=== PATIENT | female | born 1955 | race Caucasian/White ===

== ENCOUNTER → 2022-10-09 07:57 | Outpatient (BNVA) | payer MEDICARE, OTHER, SELFPAY | PROVIDERS: PCP Internal Medicine; Visit Provider Internal Medicine Rheumatology | DX: M19.041 Primary osteoarthritis, right hand (principal); M19.042 Primary osteoarthritis, left hand; M25.551 Pain in right hip; M25.552 Pain in left hip; R63.4 Abnormal weight loss | CPT/HCPCS: 36415; 73521; 80053; 82085; 82550; 84443; 85652; 86038; 86039; 86140; 86200; 86431; 99202 ==

== ENCOUNTER 2022-10-09 09:31 | Outpatient (REF) | payer MEDICARE, OTHER, SELFPAY ==
--- NOTE | ~2022-10-09 | XR_ITS ---
EXAMINATION: XR BILATERAL HIPS WITH AP PELVIS CLINICAL INFORMATION: Pain in right hip COMPARISON: None TECHNIQUE: AP view of the pelvis with AP and frog-leg lateral views of both hips FINDINGS: No fracture or dislocation. Hip joint spaces are maintained. Minimal acetabular spurring. Sacroiliac joints are patent. XR/XR hip BI w PEL1V IMPRESSION: No acute osseous abnormality.
[2022-10-09 11:05] LABS: Alanine Aminotransferase 21 U/L (0-31); Albumin Level 4.3 g/dL (3.5-5.0); Alkaline Phosphatase 58 U/L (39-117); Anion Gap 9 (12-20); Aspartate Amino Transferase 22 U/L (5-31); Bilirubin Total 0.5 mg/dL (0.0-1.0); Blood Urea Nitrogen 15 mg/dL (9-16); C Reactive Protein < 0.10 mg/dL (< or = 0.50); Calcium 9.6 mg/dL (8.4-10.2); Carbon Dioxide 31 mmol/L (22-29); Chloride 104 mmol/L (96-108); Estimated Glomerular Filt Rate > 60; Glucose Random 105 mg/dL (60-115); Potassium 4.2 mmol/L (3.3-5.1); Rheumatoid Factor < 13.0 IU/mL (<15.0); Sodium 140 mmol/L (135-145); Total Protein 6.9 g/dL (6.5-8.0)
[2022-10-09 11:15] LABS: Erythrocyte Sedimentation Rate 9 MM/HR (0-20); Thyroid Stimulating Hormone 0.79 uIU/mL (0.32-4.0)
[2022-10-11 11:03] LABS: Anti Nuclear Antibody Screen NEGATIVE (NEGATIVE)
[2022-10-11 15:58] LABS: Cyclic Citrullinated Peptide <16 UNITS
[2022-10-13 10:18] LABS: Aldolase 4.9 U/L (<=8.1)
== END 2022-10-09 09:32 | disposition home or self-care (01) ==
LOC: HO.10HDL 09:31
PROVIDERS: PCP Internal Medicine; Visit Provider Internal Medicine Rheumatology
DX: Z13.89 Encounter for screening for other disorder (principal)
CPT/HCPCS: 36415; 73521; 80053; 82085; 82550; 84443; 85652; 86038; 86039; 86140; 86200; 86431

== ENCOUNTER → 2022-12-04 08:02 | Outpatient (BNVA) | payer MEDICARE, OTHER, SELFPAY | PROVIDERS: PCP Internal Medicine; Visit Provider Internal Medicine Rheumatology | DX: M35.3 Polymyalgia rheumatica (principal); M19.041 Primary osteoarthritis, right hand; M19.042 Primary osteoarthritis, left hand | CPT/HCPCS: 99212 ==

== ENCOUNTER 2023-03-24 10:40 | Outpatient (REF) | payer MEDICARE, OTHER, SELFPAY ==
[2023-03-24 12:00] LABS: C Reactive Protein < 0.10 mg/dL (< or = 0.50)
[2023-03-24 12:16] LABS: Erythrocyte Sedimentation Rate 3 MM/HR (0-20)
== END 2023-03-24 10:41 | disposition home or self-care (01) ==
LOC: HO.LAB 10:40
PROVIDERS: PCP Internal Medicine; Visit Provider Internal Medicine Rheumatology
DX: M35.3 Polymyalgia rheumatica (principal)
CPT/HCPCS: 36415; 85652; 86140

== ENCOUNTER → 2023-03-25 08:41 | Outpatient (BNVA) | payer MEDICARE, OTHER, SELFPAY | PROVIDERS: PCP Internal Medicine; Visit Provider Internal Medicine Rheumatology | DX: M35.3 Polymyalgia rheumatica (principal); M19.041 Primary osteoarthritis, right hand; M19.042 Primary osteoarthritis, left hand | CPT/HCPCS: 99212 ==

== ENCOUNTER 2023-07-08 13:52 | Outpatient (REF) | payer MEDICARE, OTHER, SELFPAY ==
[2023-07-08 15:28] LABS: C Reactive Protein < 0.04 mg/dL (< or = 0.50)
[2023-07-08 15:31] LABS: Erythrocyte Sedimentation Rate 5 MM/HR (0-20)
== END 2023-07-08 13:53 | disposition home or self-care (01) ==
LOC: HO.LAB 13:52
PROVIDERS: Visit Provider Internal Medicine Rheumatology
DX: M35.3 Polymyalgia rheumatica (principal)
CPT/HCPCS: 36415; 85652; 86140

== ENCOUNTER 2023-07-16 11:15 | Outpatient (AMB) | payer MEDICARE, OTHER, SELFPAY ==
--- NOTE | 2023-07-16 11:21 | A.OFFVIS_ITS ---
Intake Vital Signs 07/16/23 11:33 Height 5 ft 4 in Weight 111 lb 15.917 oz BMI 19.2 BP 108/80 Blood Pressure Location Lt brachial Position Sitting Pulse 86 Pulse Source Pulse Oximeter Temp 97.5 F Temp Source Skin Pulse Oximetry (%) 97 Oxygen Delivery Method Room Air Intake Visit Reasons: pmr Intake Note: patient presents to office today to follow up on PMR. Pipe Cutter Required: No Accompanied by: Self / Same As Patient Allergies Sulfa (Sulfonamide Antibiotics) Allergy (Intermediate, Verified 07/16/23 11:32) mouth swelling HPI HPI Comments History of Present Illness Details The patient returns for evaluation of her PMR. She is currently at 1 mg daily prednisone. In mid June she decided to stop the prednisone. She did fine with no symptoms for about 10 days and then started to develop some overall stiffness in her shoulders, hips and knees. She recognized this as some return of her PMR symptoms so she restarted the prednisone at 1 mg daily. There has been no headache, jaw claudication or visual disturbance. She rarely uses some [id number] ibuprofen for joint pains. There has been no joint swelling. [facility] Medical History (Updated 12/03/22 @ 17:29 by Jean-Claude Adams MD) Muscle pain Chronic right shoulder pain SOB (shortness of breath) Hypertension Vasomotor symptoms due to menopause Migraines Surgical History History of rectal surgery Social History Household Members: Spouse Housing: House Alcohol intake: current Alcohol intake frequency: 0-2 drinks per day Alcohol type: wine Patient Tobacco Use Status: Never used Tobacco e-Cigarette/Vaping Use: Never Used service: No Current occupational status: retired Current occupation: Former manager environmental Review of Systems Const Details: Negative for appetite change, weight change, fever, chills, malaise and fatigue Eyes Details: Negative for vision change, dry eyes,headaches and dizziness Neuro Details: Negative for epilepsy, palsy, stroke, changes in speech, tingling and weakness Endo Details: Negative for polyuria and polydypsia Merlin/Lymph Details: Negative for excessive bruising or bleeding. Physical Exam Vital Signs: Last Vital Signs Temp 97.5 F 07/16/23 11:33 Pulse 86 07/16/23 11:33 BP 108/80 07/16/23 11:33 Pulse Ox 97 07/16/23 11:33 Oxygen Delivery Method Room Air 07/16/23 11:33 BMI result Body Mass Index 19.2 APPEARANCE: Patient in no acute distress EYES no redness, pupils equal and reactive to light, eyelids normal.? No temporal artery tenderness, redness or swelling. EXTREMITIES:? No edema, no calf tenderness, normal peripheral pulses. Neuro: Oriented and alert. No focal weakness. There is a fine intention tremor of the right hand. No cogwheeling. JOINT EXAM: ?? Cervical Spine:.? Full range of motion without pain; no tenderness. Thoracic Spine:.? No scoliosis.? No tenderness on palpation. Lumbar Spine:.? Alignment normal.? Full range of motion without pain, no tenderness. Chest Wall:.? No tenderness, swelling, increased warmth or erythema. Hands:? Normal pain-free range of motion.? There is nontender bony enlargement at the 2nd through 5th PIP joints bilaterally, a bit less prominent in the right hand.? None of these are tender.? She has no flexor tendon triggering or tenderness.? There is no thenar atrophy or sensory loss.? Wrists:.? Normal pain-free range of motion without tenderness, swelling, increased warmth or erythema. Elbows:. Normal pain-free range of motion without tenderness, swelling, increased warmth or erythema. Shoulders:.?? Full range of motion with no discomfort with extremes of normal range of motion. No tenderness, weakness, swelling, increased warmth or erythema. Hips:? Right: Slight thigh discomfort with extremes of external rotation and abduction.? No groin pain with motion.? Left:? Full range of motion with slight buttock and lateral hip discomfort at the extremes of normal abduction and external rotation.? No groin pain with motion. Hip bursa:.? No tenderness. Knees:.?? Normal pain-free range of motion without tenderness, swelling, increased warmth or erythema.? There is no effusion or crepitation Ankles:? Normal pain-free range of motion without tenderness, swelling, increased warmth or erythema. Results Reviewed Results Reviewed: Laboratory Tests 07/08/23 14:13 ESR 5 C-Reactive Protein < 0.04 Assessment & Plan Assessment & Plan (1) Polymyalgia rheumatica: Comment: onset 12/2021 ESR/CRP normal in 05/2022 Code(s): M35.3 - Polymyalgia rheumatica Plan PMR with no symptoms to suggest active inflammatory disease. However when she did stop the prednisone after 10 days some stiffness came back so she probably needs some dose of prednisone. I told her to stay on the 1 mg daily for this month and then next month, August, try to go to 1 mg every other day. If that is without any flare of symptoms I suggested she should stop the prednisone in September and see how that goes. If symptoms do return she will go back to the 1 mg daily dose. We will check lab work before her next visit in about 3 months. Orders: Orders Erythrocyte Sedimentation Rate Today M35.3 - Polymyalgia rheumatica C Reactive Protein Today M35.3 - Polymyalgia rheumatica Coding Level of Care Code Est Pt Level 3 (66417) Diagnoses Polymyalgia rheumatica M35.3
[2023-07-16 11:33] VITALS: BP 108/80; PULSE 86; TEMP 36.4; O2SAT 97; BMI 19.2
== END 2023-07-16 12:02 | disposition home or self-care (01) ==
PROVIDERS: PCP Internal Medicine; Visit Provider Internal Medicine Rheumatology
DX: M35.3 Polymyalgia rheumatica (principal)
CPT/HCPCS: 99213

== ENCOUNTER → 2023-07-16 11:15 | Outpatient (BNVA) | payer MEDICARE, OTHER, SELFPAY | PROVIDERS: PCP Internal Medicine; Visit Provider Internal Medicine Rheumatology | DX: M35.3 Polymyalgia rheumatica (principal) | CPT/HCPCS: 99212 ==

== ENCOUNTER 2023-10-13 17:11 | Outpatient (REF) | payer MEDICARE, OTHER, SELFPAY ==
[2023-10-13 18:08] LABS: C Reactive Protein < 0.04 mg/dL (< or = 0.50)
[2023-10-13 18:22] LABS: Erythrocyte Sedimentation Rate 5 MM/HR (0-20)
== END 2023-10-13 17:12 | disposition home or self-care (01) ==
LOC: HO.LAB 17:11
PROVIDERS: Visit Provider Internal Medicine Rheumatology
DX: M35.3 Polymyalgia rheumatica (principal)
CPT/HCPCS: 36415; 85652; 86140

== ENCOUNTER 2023-10-16 09:16 | Outpatient (AMB) | payer MEDICARE, OTHER, SELFPAY ==
--- NOTE | 2023-10-16 09:19 | A.OFFVIS_ITS ---
Intake Vital Signs 10/16/23 09:20 Height 5 ft 4 in Weight 111 lb 1.808 oz BMI 19.1 BP 100/70 Blood Pressure Location Rt brachial Position Sitting Pulse 60 Pulse Source Palpation Temp 97 F Temp Source Skin Intake Visit Reasons: pmr with dr Brian Sotelo Note: Pt last seen by Dr Adams on 07/16/23 presents today for follow up and test results. Presnisone was discontinued, now having stiffness on legs and hips, ? restarting prednisone? 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 After patient got COVID booster vaccine in September of 2021 she started to have PMR like symptoms in early 2021. She was diagnosed with PMR by Dr. Adams in 2021. She did not have high inflammatory markers. She was started on prednisone 5 mg daily. This was the highest prednisone dose she received. With good results. After last visit in July with Dr. Adams, patient tapered her prednisone back to 1 mg daily then 1 mg every other day, she completely discontinued prednisone by the end of August. She states that she feels well overall currently except for minimal morning stiffness of her hips and thighs. Denies shoulder pain or stiffness. Denies any swollen joints. She states that 80% of her morning stiffness resolves as soon as she gets up from her bed, 20% of the stiffness remains throughout the day but symptoms are quite tolerable. She denies any fevers, headaches or blurry vision. Most recent history by Dr. Adams 07/2023: The patient returns for evaluation of her PMR. She is currently at 1 mg daily prednisone. In mid June she decided to stop the prednisone. She did fine with no symptoms for about 10 days and then started to develop some overall stiffness in her shoulders, hips and knees. She recognized this as some return of her PMR symptoms so she restarted the prednisone at 1 mg daily. There has been no headache, jaw claudication or visual disturbance. She rarely uses some [id number] ibuprofen for joint pains. There has been no joint swelling. [facility] Medical History Muscle pain Chronic right shoulder pain SOB (shortness of breath) Hypertension Vasomotor symptoms due to menopause Migraines Surgical History History of rectal surgery Social History Household Members: Spouse Housing: House Alcohol intake: current Alcohol intake frequency: 0-2 drinks per day Alcohol type: wine Patient Tobacco Use Status: Never used Tobacco e-Cigarette/Vaping Use: Never Used service: No Current occupational status: retired Current occupation: Former senior environmental technician Review of Systems [facility] Reports arthralgias and Reports stiffness Physical Exam Vital Signs: Last Vital Signs Temp 97 F 10/16/23 09:20 Pulse 60 10/16/23 09:20 BP 100/70 10/16/23 09:20 BMI result Body Mass Index 19.1 Const General: cooperative, healthy appearing and comfortable Nutritional Appearance: average body habitus Orientation/consciousness: patient oriented x3 Limitations: no limitations HEENT Head: Yes normocephalic and Yes atraumatic Mouth: moist mucous membranes Resp Effort & Inspection: normal respiratory effort and able to speak in complete sentences Auscultation: clear to auscultation bilaterally Cardio Rate: regular rate Rhythm: regular rhythm GI Inspection: No distended Palpation (GI): Soft to palpation and nontender Skin General skin exam: no rashes or lesions noted Neuro General: patient oriented x3 Extrem Other: Significant osteoarthritic changes of hands with prominent Heberden's nodes Normal range of motion of hands, wrists, elbows and shoulders without pain Normal range of motion of hips, knees without pain No Active synovitis noted Assessment & Plan Assessment & Plan (1) Polymyalgia rheumatica: Comment: onset 12/2021 ESR/CRP normal in 05/2022 Code(s): M35.3 - Polymyalgia rheumatica Plan: 68-year-old female returns for evaluation of PMR.? After patient got COVID booster vaccine in September of 2021 she started to have PMR like symptoms in early 2021.? She was diagnosed with PMR by Dr. Adams in 2021.? She did not have high inflammatory markers.? She was started on prednisone 5 mg daily.? This was the highest prednisone dose she received.? With good results. She has been off of prednisone for about 2 months now, doing quite well except for fairly minimal stiffness of her hips and thighs. Discussed with patient, will watch her off steroids for now. Re-evaluate in 6 months Plan I spent 20 minutes reviewing patient's chart, evaluating patient, counseling patient and documenting in the chart Coding Level of Care Code Est Pt Level 3 (80127) Diagnoses Polymyalgia rheumatica M35.3
[2023-10-16 09:20] VITALS: BP 100/70; PULSE 60; TEMP 36.1; BMI 19.1
== END 2023-10-16 10:05 | disposition home or self-care (01) ==
PROVIDERS: PCP Internal Medicine; Visit Provider Student in an Organized Health Care Education/Training Program
DX: M35.3 Polymyalgia rheumatica (principal)
CPT/HCPCS: 99213

== ENCOUNTER → 2023-10-16 09:16 | Outpatient (BNVA) | payer MEDICARE, OTHER, SELFPAY | PROVIDERS: PCP Internal Medicine; Visit Provider Student in an Organized Health Care Education/Training Program | DX: M35.3 Polymyalgia rheumatica (principal) | CPT/HCPCS: 99212 ==